=== PATIENT | female | born 1985 | race American Indian/Alaskan Native ===

== ENCOUNTER 2017-02-17 18:10 | Emergency (ER) | payer MEDICAID ==
[2017-02-17 19:10] VITALS: TEMP 98.5
--- NOTE | 2017-02-17 20:11 | ED PDOC ---
Arrival/HPI - General Chief Complaint: Female Genitourinary Time Seen by Provider: 02/17/17 19:31 - History of Present Illness Narrative History of Present Illness (Text): 02/17/17 20:09 Complaining of vaginal discharge and dysuria times one day denies any abdominal pain denies any fever denies chills flank pain patient is concerned she may contracted an STD Time/Duration: 24 hours Past Medical History - Provider Review Nursing Documentation Reviewed: Yes - Travel History Have you recently traveled outside [place] w/in the past 3 mons?: No - Cardiac Hx Cardiac Disorders: No - Pulmonary Hx Respiratory Disorders: No - Neurological Hx Neurological Disorder: No - HEENT Hx HEENT Disorder: No - Renal Hx Renal Disorder: No - Endocrine/Metabolic Hx Endocrine Disorders: No - Hematological/Oncological Hx Blood Disorders: No - Integumentary Hx Dermatological Disorder: Yes Hx Eczema: Yes - Musculoskeletal/Rheumatological Hx Musculoskeletal Disorders: No - Gastrointestinal Hx Gastrointestinal Disorders: No - Genitourinary/Gynecological Hx Genitourinary Disorders: No - Psychiatric Hx Psychophysiologic Disorder: No Hx Substance Use: No - Surgical History Hx Section: Yes (x1) Family/Social History - Physician Review Nursing Documentation Reviewed: Yes Family/Social History: No Known Family HX Smoking Status: Never Smoked Hx Alcohol Use: No Hx Substance Use: No Allergies/Home Meds Allergies/Adverse Reactions: Allergies No Known Allergies Allergy (Verified 02/17/17 19:07) Home Medications: Home Meds Medication Instructions Recorded Confirmed Halobetasol Propionate [Ultravate] 1 appl TP PRN PRN 02/17/17 02/17/17 Review of Systems - Review of Systems Constitutional: Normal Eyes: Normal ENT: Normal Respiratory: Normal Cardiovascular: Normal Gastrointestinal: Normal Genitourinary Female: Dysuria, Vaginal Discharge (yellow). absent: Vaginal Bleeding Musculoskeletal: Normal Skin: Normal Neurological: Normal Endocrine: Normal Hemo/Lymphatic: Normal Psychiatric: Normal Physical Exam Vital Signs Temp Pulse Resp BP Pulse Ox 02/17/17 21:07 89 17 118/85 100 02/17/17 19:09 98.5 F 91 H 16 116/80 99 Temperature: Afebrile Blood Pressure: Normal Pulse: Regular Respiratory Rate: Normal Appearance: Positive for: Well-Appearing, Non-Toxic, Comfortable Pain Distress: None Mental Status: Positive for: Alert and Oriented X 3 - Systems Exam Head: Present: Atraumatic, Normocephalic Pupils: Present: PERRL Extroacular Muscles: Present: EOMI Conjunctiva: Present: Normal Mouth: Present: Moist Mucous Membranes Neck: Present: Normal Range of Motion Respiratory/Chest: Present: Clear to Auscultation, Good Air Exchange. No: Respiratory Distress, Accessory Muscle Use Cardiovascular: Present: Regular Rate and Rhythm, Normal S1, S2. No: Murmurs Abdomen: Present: Normal Bowel Sounds. No: Tenderness, Distention, Peritoneal Signs Genitourinary/Pelvic Exam: Present: Normal External Genitalia, Vaginal Discharge. No: Adenexal Tenderness, Cervical Motion Tendernes, Odor Back: Present: Normal Inspection Upper Extremity: Present: Normal Inspection. No: Cyanosis, Edema Lower Extremity: Present: Normal Inspection. No: Edema Neurological: Present: GCS=15, CN II-XII Intact, Speech Normal Skin: Present: Warm, Dry, Normal Color. No: Rashes Psychiatric: Present: Alert, Oriented x 3, Normal Insight, Normal Concentration Medical Decision Making ED Course and Treatment: 02/17/17 20:09 Impression: A 31 year old female who presents to the emergency department complaining of vaginal discharge for past day. Patient is concerned that she may have contracted an STD Plan: -- Chlamydia GC -- Diflucan -- Rocephin -- Zithromax -- POC preganancy test -- Reassess and disposition Progress Notes: 02/17/17 21:30 On re-evaluation, patient feels better and is in no acute distress. I have discussed the results and plan with the patient, who expresses understanding. Patient in agreement with plan to be discharged home. Patient is stable for discharge. Patient was instructed to follow up with physician or return if symptoms worsen or new concerning symptoms arise. Re-evaluation Time: 21:30 Reassessment Condition: Re-examined, Improved - Lab Interpretations Lab Results: Lab Results 02/17/17 19:40: Urine Color Yellow, Urine Appearance Clear, Urine pH 6.0, Ur Specific [place] >= 1.030, Urine Protein Negative, Urine Glucose (UA) Negative, Urine Ketones Negative, Urine Blood Negative, Urine Nitrate Negative, Urine Bilirubin Negative, Urine Urobilinogen 0.2, Ur Leukocyte Esterase Negative - Medication Orders Current Medication Orders: Fluconazole (Diflucan) 150 mg PO DAILY LIAN PRN Reason: Protocol Discontinued Medications Azithromycin (Zithromax) 1,000 mg PO ONCE STA PRN Reason: Protocol Stop: 02/17/17 21:17 Ceftriaxone Sodium (Rocephin) 250 mg IM STAT STA PRN Reason: Protocol Stop: 02/17/17 21:16 Disposition/Present on Arrival - Present on Arrival Any Indicators Present on Arrival: No History of DVT/PE: No History of Uncontrolled Diabetes: No Urinary Catheter: No History of Decub. Ulcer: No History Surgical Site Infection Following: None - Disposition Have Diagnosis and Disposition been Completed?: Yes Diagnosis: Sexually transmitted disease (STD) Disposition: HOME/ ROUTINE Disposition Time: 21:30 Patient Problems: Current Active Problems Problem Status Onset Sexually transmitted disease (STD) Acute Condition: GOOD Discharge Instructions (ExitCare): Sexually Transmitted Diseases (ED) Referrals: PCP,NO [Primary Care Provider] - Follow up with primary Forms: [employer] (Lao)
[2017-02-17 20:34] LABS: URINE BILIRUBIN NEGATIVE (NEGATIVE); URINE BLOOD NEGATIVE (NEGATIVE); URINE GLUCOSE (UA) NEGATIVE (NEGATIVE); URINE LEUKOCYTE ESTERASE NEGATIVE Leu/uL (NEGATIVE); URINE NITRATE NEGATIVE (NEGATIVE); URINE PROTEIN NEGATIVE mg/dL (<30 mg/dL); URINE UROBILINOGEN 0.2 E.U./dL (<1 E.U./dL)
[2017-02-17 21:07] VITALS: BP 118/85; PULSE 89; RESP 17; O2SAT 100
[2017-02-17 21:11] LABS: URINE APPEARANCE CLEAR (CLEAR); URINE COLOR YELLOW (YELLOW)
[2017-02-17] MEDS ORDERED: cefTRIAXone (Rocephin) 250 mg Inj IM STA (21:15)
== END 2017-02-17 21:55 | disposition home or self-care (01) ==
LOC: ED 18:10
DX: A64 Unspecified sexually transmitted disease (principal)
CPT/HCPCS: 81003; 87491; 87591; 96372; 99284; J0696

== ENCOUNTER 2018-03-17 00:04 | Emergency (ER) | payer MEDICAID ==
[2018-03-17 00:10] VITALS: BMI 38.2
[2018-03-17 00:12] VITALS: RESP 16
--- NOTE | 2018-03-17 01:07 | ED PDOC ---
Arrival/HPI - General Chief Complaint: Chest Pain Time Seen by Provider: 03/17/18 00:36 Historian: Patient - History of Present Illness Narrative History of Present Illness (Text): 03/17/18 01:07 32 year old female, with no significant past medical history, presents to the emergency department with mid-sternal chest pain, prior to arrival. Patient states she was sitting on her bed when she gelt acute onset of mid-sternal pain that radiated to her back. Patient states she ate some baked ziti prior to feeling the pain. Patient informs she felt a little a little dizzy prior to incident, but does not feel it now. Patient denies any fever, chills, headache , dizziness, abdominal pain, nausea, vomiting, diarrhea, neck pain, urinary/ bowel changes, or any other complaint. Time/Duration: Prior to Arrival Past Medical History - Provider Review Nursing Documentation Reviewed: Yes - Infectious Disease Hx of Infectious Diseases: None - Reproductive Menopause: No - Cardiac Hx Cardiac Disorders: No - Pulmonary Hx Respiratory Disorders: No - Neurological Hx Neurological Disorder: No HX Cerebrovascular Accident: Yes - HEENT Hx HEENT Disorder: No - Renal Hx Renal Disorder: No - Endocrine/Metabolic Hx Endocrine Disorders: No - Hematological/Oncological Hx Blood Disorders: No - Integumentary Hx Dermatological Disorder: Yes Hx Eczema: Yes - Musculoskeletal/Rheumatological Hx Musculoskeletal Disorders: No - Gastrointestinal Hx Gastrointestinal Disorders: No - Genitourinary/Gynecological Hx Genitourinary Disorders: No - Psychiatric Hx Psychophysiologic Disorder: No Hx Substance Use: No - Surgical History Hx Section: Yes (x1) Family/Social History - Physician Review Nursing Documentation Reviewed: Yes Family/Social History: No Known Family HX Smoking Status: Never Smoked Hx Alcohol Use: No Hx Substance Use: No Allergies/Home Meds Allergies/Adverse Reactions: Allergies No Known Allergies Allergy (Verified 03/17/18 00:13) Home Medications: Home Meds Medication Instructions Recorded Confirmed No Known Home Med 03/17/18 03/17/18 Review of Systems - Physician Review All systems were reviewed & negative as marked: Yes - Review of Systems Constitutional: Normal. absent: Fevers, Night Sweats Eyes: Normal ENT: Normal Respiratory: Normal Cardiovascular: Chest Pain. absent: Edema Gastrointestinal: Normal. absent: Abdominal Pain, Diarrhea, Nausea, Vomiting Genitourinary Female: Normal. absent: Urine Output Changes Musculoskeletal: Normal. absent: Neck Pain Skin: Normal Neurological: Normal. absent: Headache, Dizziness Endocrine: Normal Hemo/Lymphatic: Normal Psychiatric: Normal Physical Exam Vital Signs Reviewed: Yes Vital Signs Temp Pulse Resp BP Pulse Ox 03/17/18 03:21 98.0 F 76 16 133/78 99 03/17/18 00:12 74 16 113/94 H 100 Temperature: Afebrile Blood Pressure: Normal Pulse: Regular Respiratory Rate: Normal Appearance: Positive for: Well-Appearing, Non-Toxic, Comfortable Pain Distress: None Mental Status: Positive for: Alert and Oriented X 3 - Systems Exam Head: Present: Atraumatic, Normocephalic Pupils: Present: PERRL Extroacular Muscles: Present: EOMI Conjunctiva: Present: Normal Mouth: Present: Moist Mucous Membranes Neck: Present: Normal Range of Motion Respiratory/Chest: Present: Clear to Auscultation, Good Air Exchange. No: Respiratory Distress, Accessory Muscle Use Cardiovascular: Present: Regular Rate and Rhythm, Normal S1, S2. No: Murmurs Abdomen: No: Tenderness, Distention, Peritoneal Signs Back: Present: Normal Inspection Upper Extremity: Present: Normal Inspection. No: Cyanosis, Edema Lower Extremity: Present: Normal Inspection. No: Edema Neurological: Present: GCS=15, CN II-XII Intact, Speech Normal Skin: Present: Warm, Dry, Normal Color. No: Rashes Psychiatric: Present: Alert, Oriented x 3, Normal Insight, Normal Concentration Medical Decision Making ED Course and Treatment: 03/17/18 01:13 Impression: 32 year old female presents to the emergency department with mid- sternal chest pain. Plan: -- Labs -- Toradol -- Chest X-ray -- Reassess and disposition Prior Visits: Notes and results from previous visits were reviewed. Progress Notes: Patient given toradol ivp for pain. Labs, EKG and Chest X-Ray done and were unremarkable. 03/17/18 02:23 Patient was reevaluated and is sleeping comfortably. Patient states she feels better. Results discussed, advised outpatient followup. GI cocktail given as patient states she still has some lingering chest pain, and that she had eaten baked ziti prior to developing the pain. - Lab Interpretations Lab Results: 03/17/18 00:57 03/17/18 00:57 Lab Results 03/17/18 00:57: Sodium 143, Potassium 3.8, Chloride 106, Carbon Dioxide 24, Anion Gap 17, BUN 16, Creatinine 0.9, Est GFR ( Amer) > 60, Est GFR (Non- Af Amer) > 60, Random Glucose 99, Calcium 8.8, Troponin I < 0.01 03/17/18 00:57: D-Dimer, Quantitative < 200 03/17/18 00:57: WBC 11.9 H, RBC 4.26, Hgb 12.0, Hct 34.6 L, MCV 81.2, MCH 28.2, MCHC 34.7, RDW 13.8, Plt Count 220, MPV 11.6 H, Gran % 60.1, Lymph % (Auto) 31.9 , [place] % (Auto) 5.9, Eos % (Auto) 1.6, Baso % (Auto) 0.5, Gran # 7.13 H, Lymph # (Auto) 3.8 H, [place] # (Auto) 0.7 H, Eos # (Auto) 0.2, Baso # (Auto) 0.06 - RAD Interpretation Radiology Orders: 03/17/18 00:37 CHEST PORTABLE [RAD] Stat - Medication Orders Current Medication Orders: Discontinued Medications Al Hydrox/Mg Hydrox/Simethicone (Maalox Plus 30 Ml) 30 ml PO STAT STA Stop: 03/17/18 02:18 Last Admin: 03/17/18 02:28 Dose: 30 ml Ketorolac Tromethamine (Toradol) 30 mg IVP STAT STA Stop: 03/17/18 00:38 Last Admin: 03/17/18 01:30 Dose: 30 mg MAR Pain Assessment Document 03/17/18 01:30 IT (Rec: 03/17/18 01:30 IT [id number]) Pain Reassessment Is this a pain reassessment? No Sleep Is patient sleeping during reassessment? No Presence of Pain Presence of Pain Yes IVP Administration Document 03/17/18 01:30 IT (Rec: 03/17/18 01:30 IT [id number]) Charges for Administration # of IVP Administrations 1 Lidocaine HCl (Lidocaine 2% Viscous) 15 ml PO ONCE ONE Stop: 03/17/18 02:18 Last Admin: 03/17/18 02:28 Dose: 15 ml - Scribe Statement The provider has reviewed the documentation as recorded by the Larisa Bansal Provider Scribe Attestation: All medical record entries made by the Larisa were at my direction and personally dictated by me. I have reviewed the chart and agree that the record accurately reflects my personal performance of the history, physical exam, medical decision making, and the department course for this patient. I have also personally directed, reviewed, and agree with the discharge instructions and disposition. Disposition/Present on Arrival - Present on Arrival Any Indicators Present on Arrival: No History of DVT/PE: No History of Uncontrolled Diabetes: No Urinary Catheter: No History of Decub. Ulcer: No History Surgical Site Infection Following: None - Disposition Have Diagnosis and Disposition been Completed?: Yes Diagnosis: Chest pain Disposition: HOME/ ROUTINE Disposition Time: 03:21 Condition: FAIR Discharge Instructions (ExitCare): Chest Pain (ED) Additional Instructions: CARLI HUBBARD, thank you for letting us take care of you today. Your provider was Cary Balbuena MD and you were treated for BACK/NECK PAIN. The emergency medical care you received today was directed at your acute symptoms. If you were prescribed any medication, please fill it and take as directed. It may take several days for your symptoms to resolve. Return to the Emergency Department if your symptoms worsen, do not improve, or if you have any other problems. Please contact your doctor or call one of the physicians/clinics you have been referred to that are listed on the Patient Visit Information form that is included in your discharge packet. Bring any paperwork you were given at discharge with you along with any medications you are taking to your follow up visit. Our treatment cannot replace ongoing medical care by a primary care provider outside of the emergency department. Thank you for allowing the [facility] team to be part of your care today. If you had an X-Ray or CT scan: A Radiologist will review the ED reading if any change in treatment is needed we will contact you. If you had a blood, urine, or wound culture: It will take several days for the results, if any change in treatment is needed we will contact you. If you had an STI test: It will take 48 hours for the results. Please call after 1 week if you have not heard back. Forms: [employer] (Vietnamese)
[2018-03-17 01:13] LABS: BASO # 0.06 K/mm3 (0.0-2.0); BASO % 0.5 % (0.0-3.0); EOS # 0.2 (0.0-0.7); EOS % 1.6 % (1.5-5.0); GRAN # 7.13 (1.4-6.5); GRAN % 60.1 % (50.0-68.0); LYMPH # 3.8 (1.2-3.4); LYMPH % 31.9 % (22.0-35.0); MEAN CELL VOLUME 81.2 fl (80.0-105.0); MEAN CORPUSCULAR HEMOGLOBIN 28.2 pg (25.0-35.0); MEAN CORPUSCULAR HGB CONC 34.7 g/dl (31.0-37.0); MEAN PLATELET VOLUME 11.6 fl (7.0-11.0); MONO # 0.7 (0.1-0.6); MONO % 5.9 % (1.0-6.0); RBC 4.26 10^6/uL (3.5-6.1); RED CELL DISTRIBUTION WIDTH 13.8 % (11.5-14.5); WHITE BLOOD COUNT 11.9 10^3/ul (4.5-11.0)
[2018-03-17 01:32] LABS: BLOOD UREA NITROGEN 16 mg/dL (7-21); CALCIUM 8.8 mg/dL (8.4-10.5); GFR NON-AFRICAN AMERICAN > 60
[2018-03-17 01:43] LABS: TROPONIN I < 0.01 ng/mL
[2018-03-17] MEDS ORDERED: Alum-Mag Hydrox-Simethicone Susp (30 mL) PO STA (02:17)
[2018-03-17 03:22] VITALS: BP 133/78; PULSE 76; TEMP 98; O2SAT 99
--- NOTE | 2018-03-17 08:39 | RAD ---
Date of service: 03/17/2018 HISTORY: chest pain COMPARISON: No prior. FINDINGS: LUNGS: No active pulmonary disease. PLEURA: No significant pleural effusion identified, no pneumothorax apparent. CARDIOVASCULAR: Normal. OSSEOUS STRUCTURES: No significant abnormalities. VISUALIZED UPPER ABDOMEN: Normal. OTHER FINDINGS: None. IMPRESSION: No active disease.
--- NOTE | 2018-03-17 21:37 | CARD ---
APPROVED REPORT Date of service: 03/17/2018 EKG Measurement Heart [id number] <Conclusion> Sinus rhythm with 1st degree AV block ST elevation, probably due to early repolarization Borderline ECG
== END 2018-03-17 02:39 | disposition home or self-care (01) ==
LOC: ED 00:04
DX: R07.2 Precordial pain (principal)
CPT/HCPCS: 71045; 80048; 84484; 85025; 85378; 93005; 96374; 99283; J1885

== ENCOUNTER 2018-11-25 19:46 | Emergency (ER) | payer BC, MEDICAID ==
[2018-11-25 20:44] VITALS: BMI 35.7
[2018-11-25 20:50] VITALS: RESP 18; O2SAT 99
[2018-11-25] MEDS ORDERED: cefTRIAXone (Rocephin) 250 mg Inj IM STA (22:14)
[2018-11-25 23:11] LABS: URINE BILIRUBIN NEGATIVE (NEGATIVE); URINE BLOOD NEGATIVE (NEGATIVE); URINE GLUCOSE (UA) NEGATIVE (NEGATIVE); URINE LEUKOCYTE ESTERASE NEGATIVE Leu/uL (NEGATIVE); URINE PROTEIN NEGATIVE mg/dL (<30 mg/dL); URINE UROBILINOGEN 0.2 E.U./dL (<1 E.U./dL)
[2018-11-25 23:13] LABS: URINE APPEARANCE CLEAR (CLEAR); URINE COLOR YELLOW (YELLOW)
[2018-11-25 23:35] LABS: BASO # 0.04 K/mm3 (0.0-2.0); BASO % 0.5 % (0.0-3.0); EOS # 0.1 (0.0-0.7); EOS % 1.7 % (1.5-5.0); HEMOGLOBIN 13.2 g/dL (12.0-16.0); LYMPH # 2.2 (1.2-3.4); LYMPH % 28.2 % (22.0-35.0); MEAN CORPUSCULAR HEMOGLOBIN 28.1 pg (25.0-35.0); MEAN CORPUSCULAR HGB CONC 32.9 g/dl (31.0-37.0); MEAN PLATELET VOLUME 11.3 fl (7.0-11.0); MONO # 0.7 (0.1-0.6); MONO % 9.3 % (1.0-6.0); RBC 4.7 10^6/uL (3.5-6.1); RED CELL DISTRIBUTION WIDTH 13.5 % (11.5-14.5); WHITE BLOOD COUNT 7.8 10^3/uL (4.5-11.0)
[2018-11-25 23:36] LABS: MEAN CELL VOLUME 85.3 fl (80.0-105.0)
[2018-11-25 23:47] LABS: ALB/GLOB RATIO 1.1 (1.1-1.8); ALBUMIN 4.2 g/dL (3.0-4.8); ALT/SGPT 20 U/L (7-56); AST/SGOT 24 U/L (14-36); BLOOD UREA NITROGEN 12 mg/dL (7-21); GFR NON-AFRICAN AMERICAN > 60
[2018-11-26] MEDS ORDERED: Emtricitabine-Tenofovir 200 mg-300 mg Tab PO STA (00:52)
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
[2018-11-26] MEDS ORDERED: Hepatitis B Immune Globulin 1mL Inj IM ONE (01:27)
[2018-11-26 02:39] VITALS: BP 118/70; PULSE 70; TEMP 98
[2018-11-26 11:50] LABS: HEPATITIS B SURFACE AG Negative (NEGATIVE)
[2018-11-26 11:55] LABS: HEPATITIS A IGM NEGATIVE (NEGATIVE); HEPATITIS B CORE AB NEGATIVE (NEGATIVE)
[2018-11-26 12:07] LABS: HEPATITIS C ANTIBODY NEGATIVE (NEGATIVE)
== END 2018-11-26 02:15 | disposition home or self-care (01) ==
LOC: ED 19:46
DX: T76.21XD Adult sexual abuse, suspected, subsequent encounter (principal); R10.2 Pelvic and perineal pain
CPT/HCPCS: 80053; 80074; 81003; 81025; 85025; 86592; 86706; 87070; 87389; 87491; 87591; 96372; 99283; J0696